=== PATIENT | female | born 1955 | race Caucasian/White ===

== ENCOUNTER 2017-07-01 09:53 | Inpatient (IN) | payer MEDICAID ==
[~2017-07-01] VITALS: Ht 152.4 cm; Wt 90.1 kg
[~2017-07-01 09:53] MED LIST: ALBU0.63 NEB; ALBU90AE INH; ATEN50TA41 PO; BENZ100C17 PO; FLUT1DIS5 IH; GUAI600T31 PO; HALO100A3 IM; LEVO750T26 PO; LORA10TA3 PO; PRED20TA PO; TIOT18CA INH
[2017-07-01] MEDS ORDERED: CEFOTETAN PMX 1GM/50ML 50 ML ONE (10:58)
[2017-07-01] MEDS ORDERED: ONDANSETRON 2MG/ML, 2ML IVPush ONE (11:00)
[2017-07-01] MEDS ORDERED: SODIUM CHLORIDE FLUSH 10ML SYR IVF ONE (11:00)
[2017-07-01] MEDS ORDERED: CEFOTETAN PMX 1GM/50ML 50 ML IV ONE (11:00)
[2017-07-01 11:02] LABS: HEMATOCRIT 40.8 % (34.6-47.8); HEMOGLOBIN 13.7 g/dL (11.7-16.4); WHITE BLOOD COUNT 10.6 x10^3/uL (3.4-10)
[2017-07-01 11:14] LABS: ASPARTATE AMINO TRANSFERASE 19 U/L (15-37); BLOOD UREA NITROGEN 8 mg/dL (7-18)
[2017-07-01] MEDS ORDERED: METRONIDAZOLE PMX 500MG/100ML 100 ML IV ONE (11:30)
[2017-07-01] MEDS ORDERED: BUPIVACAINE/PF 0.5% ONE (12:12)
[2017-07-01] MEDS ORDERED: EPINEPHRINE 1 MG/ML, 1ML ONE (12:12)
[2017-07-01 12:25] VITALS: BP 127/84
[2017-07-01] MEDS ORDERED: FENTANYL PF 100 MCG/2ML ONE ×3 (12:32→13:39)
[2017-07-01] MEDS ORDERED: MIDAZOLAM 1 MG/ML, 2ML ONE (12:32)
[2017-07-01] MEDS ORDERED: PROPOFOL 10 MG/ML, 20ML ONE (12:45)
[2017-07-01] MEDS ORDERED: ONDANSETRON 2MG/ML, 2ML ONE ×2 (12:45→13:56)
[2017-07-01] MEDS ORDERED: DEXAMETHASONE 4 MG/ML, 1ML ONE (12:45)
[2017-07-01] MEDS ORDERED: CEFOTETAN 2 GM ONE (12:45)
[2017-07-01] MEDS ORDERED: PROMETHAZINE 25 MG/ML, 1ML IV PRN (13:00)
[2017-07-01] MEDS ORDERED: hydrALAzine 20 MG/ML, 1ML IV PRN (13:00)
[2017-07-01] MEDS ORDERED: MEPERIDINE/PF 25MG/0.5ML IVPush PRN (13:00)
[2017-07-01] MEDS ORDERED: LABETALOL 5MG/ML, 20ML IV PRN (13:00)
[2017-07-01] MEDS ORDERED: OXYcodone 5 MG/5 ML ORAL.SOL UDC PO PRN (13:00)
[2017-07-01] MEDS ORDERED: ACETAMINOPHEN 325 MG TABLET PO PRN (13:00)
[2017-07-01] MEDS ORDERED: ALBUTEROL/IPRATROPIUM 2.5MG/0.5MG, 3 ML NPPB PRN (13:00)
[2017-07-01] MEDS ORDERED: ONDANSETRON 2MG/ML, 2ML IVPush PRN (13:00)
[2017-07-01] MEDS ORDERED: HYDROmorphone 1 MG/ML, 1ML IV PRN (13:00)
[2017-07-01] MEDS ORDERED: BUPIVACAINE/PF-EPI 0.5% 1:200K INFIL ONE (13:01)
[2017-07-01] MEDS ORDERED: OXYcodone 5 MG/5 ML ORAL.SOL UDC ONE (13:40)
[2017-07-01] MEDS: FENTANYL PF 100 MCG/2ML IV PRN ×2 (14:04→14:30)
[2017-07-01 15:47] VITALS: BP 140/78
[2017-07-01] MEDS ORDERED: morphine SULFATE 10 MG/ML, 1ML IV PRN (16:00)
[2017-07-01] MEDS: IPRATROPIUM 0.5 MG/2.5 ML INHA HHN SCH ×2 (16:00→22:00)
[2017-07-01] MEDS ORDERED: ONDANSETRON 2MG/ML, 2ML IV PRN (16:00)
[2017-07-01] MEDS ORDERED: ALBUTEROL SULFATE 2.5 MG/3 ML HHN PRN (16:00)
[2017-07-01] MEDS: METRONIDAZOLE PMX 500MG/100ML 100 ML IVPB SCH (16:52)
[2017-07-01 18:43] VITALS: BP 114/68
[2017-07-01] MEDS: HYDROcodone/APAP 5/325 TABLET PO PRN (19:54)
[2017-07-02] MEDS: HYDROcodone/APAP 5/325 TABLET PO PRN ×3 (00:09→08:32)
[2017-07-02] MEDS: METRONIDAZOLE PMX 500MG/100ML 100 ML IVPB SCH (00:10)
[2017-07-02 00:13] VITALS: BP 133/61
[2017-07-02] MEDS: SODIUM CHLORIDE FLUSH 10ML SYR IVF SCH ×2 (00:13→08:31)
[2017-07-02] MEDS ORDERED: CEFOTETAN PMX 1GM/50ML 50 ML IVPB SCH (01:00)
[2017-07-02] MEDS ORDERED: ALBUTEROL/IPRATROPIUM 2.5MG/0.5MG, 3 ML NPPB PRN (01:30)
[2017-07-02 02:41] VITALS: BP 109/66
[2017-07-02] MEDS ORDERED: ATENOLOL 50 MG TABLET PO SCH (06:00)
[2017-07-02 06:17] VITALS: BP 125/72
[2017-07-02] MEDS ORDERED: ENOXAPARIN 30 MG/0.3 ML SQ SCH (08:00)
[2017-07-02 08:14] VITALS: BP 140/76
[2017-07-02] MEDS ORDERED: LORATADINE 10 MG TABLET PO SCH (09:00)
[2017-07-02] MEDS ORDERED: FLUTICASONE/VILANTEROL 200-25MCG/INH INH SCH (09:00)
[2017-07-02] MEDS ORDERED: ALBUTEROL/IPRATROPIUM 2.5MG/0.5MG, 3 ML NPPB SCH (09:00)
[2017-07-02] MEDS ORDERED: CIPR500T87 PO (11:22)
[2017-07-02] MEDS ORDERED: HYDR-3240 PO (11:22)
[2017-07-02] MEDS ORDERED: METR500T PO (11:23)
== END 2017-07-02 12:35 | disposition home or self-care (01) | DRG 340 ==
LOC: ED 10:54 → EDIP 10:55 → ED 11:01 → 4NOR 11:59
PROVIDERS: ADMIT Surgery Vascular Surgery; ATTEND Surgery Vascular Surgery
PROC: 0WJG4ZZ Inspection of Peritoneal Cavity, Percutaneous Endoscopic Approach (ICD-10-PCS; 2017-07-01)
PROC: 0DTJ4ZZ Resection of Appendix, Percutaneous Endoscopic Approach (ICD-10-PCS; principal; 2017-07-01 12:30)
DX: K35.3 Acute appendicitis with localized peritonitis (principal); F20.9 Schizophrenia, unspecified; I10 Essential (primary) hypertension; J44.9 Chronic obstructive pulmonary disease, unspecified
CPT/HCPCS: 36415; 80053; 83690; 85025; 88304; 94640; 96365; C1729; J0171; J1100; J1650; J2250; J2405; J2704; J3010; J3490; J7620; S0074